=== PATIENT | female | born 1975 | race Caucasian/White ===

== ENCOUNTER 2023-01-15 09:57 | Emergency (ER) | payer BC, SELFPAY ==
--- NOTE | ~2023-01-15 | XR_ITS ---
EXAMINATION: XR toe 1st RT min 2V DATE: 01/15/2023 10:24 INDICATION: Right great toe injury. TECHNIQUE: 3 views of right great toe were obtained. COMPARISON: None. FINDINGS: There is a nondisplaced stellate fracture of first distal phalanx. There is mild osteoarthr itis of first metatarsophalangeal joint. IMPRESSION: 1. Nondisplaced stellate fracture of first distal phalanx. Reviewed, dictated and finalized at location A.
[2023-01-15 10:06] VITALS: BP 149/78; PULSE 92; RESP 20; TEMP 36.7; O2SAT 100
--- NOTE | 2023-01-15 10:32 | ED.LOWEXIN ---
HPI - Extremity Injury (Lower) General Chief Complaint: Extremity Injury, Lower Stated Complaint: right toe injury Time Seen by Provider: 01/15/23 10:22 Source: patient, RN notes reviewed and old records reviewed Mode of arrival: ambulatory Limitations: no limitations History of Present Illness HPI Narrative: 47 year old female presents to express care with complaints of right toe pain due to injury 1 week ago when hitch fell onto her toe. Patient has bruising and swelling to the rifght great toe with no injury to nail noted. Patient reports that she has been taking Ibuprofen and ice applied to toe but has not been able to keep elevated as much as she should.Patient describes pain as burning rates pain 07/20. MD complaint: other (toe injury) Onset (ago): week(s) (1) Injury: Right: toes (great toe) Type of Injury: blunt Place: street/outdoors Severity scale (1-10): 3 Exacerbating factors: weight bearing and movement Treatments prior to arrival: cold therapy and NSAIDS Related Data Home Medications Medication Instructions Recorded Confirmed bupropion HCl 300 mg 24 hr tablet, mg PO 01/15/23 extended release paroxetine HCl 40 mg tablet mg PO 01/15/23 Allergies Allergy/AdvReac Type Severity Reaction Status Date / Time No Known Drug Allergies Allergy Verified 07/04/13 14:17 Review of Systems Review of Systems: CONSTITUTIONAL: Denies fever, chills, or sweats. EYES: Denies visual changes, redness, or discharge. ENT: Denies rhinorrhea, congestion, sore throat, or otalgia. CARDIOVASCULAR: Denies chest pain, palpitations, or edema. RESPIRATORY: Denies cough or dyspnea. GASTROINTESTINAL: Denies abdominal pain, nausea, vomiting, or diarrhea. GENITOURINARY: Denies dysuria or hematuria. SKIN: Denies rash or itching. MUSCULOSKELETAL: Denies back pain,right great toe pain, or myalgia. NEUROLOGIC: Denies headache, numbness, or weakness. PSYCHIATRIC: Positive for anxiety or depression. All systems reviewed & are unremarkable except as noted in HPI and below PMFSH Past Medical History Medical History (Updated 01/16/23 @ 11:16 by Vicenta Canas NP) Anxiety and depression Fracture of left proximal fibula Migraine Surgical History Surgical History (Updated 01/16/23 @ 11:10 by Vicenta Canas NP) History of stapedectomy History of tonsillectomy Hx of SACHINIK Social History Social History (Updated 01/16/23 @ 11:09 by Vicenta Canas NP) Smoking status: Former smoker Alcohol intake: current Alcohol use details: social Substance use type: does not use Comments At time of signature, agree with nursing past medical, surgical, social and family history. There is no relevant family history pertinent to the presenting complaint Exam Narrative: GENERAL: Well-appearing, well-nourished, and in no acute distress. HEAD: Normocephalic, atraumatic. EYES: PERRLA and EOMI. ENT: Nares clear, no rhinorrhea or epistaxis. Mucous membranes moist.TM's normal throat pink no tonsils present NECK: Supple.no lymphadenopathy CHEST: Clear to auscultation. No respiratory distress.SAO2 100% on room air HEART: Regular rate and rhythm. No murmur heard. Normal peripheral pulses. ABDOMEN: Soft, nontender, nondistended, normal active bowel sounds. EXTREMITIES: Normal range of motion. No Edema noted to right great toe above nail bed with no injury to nail, swelling and some redness noted to toe. Patient has adequate sensation and sensation to toe, pain with ambulation and mobility of toe.. SKIN: Warm, dry, no rash. NEURO: No focal deficits. Alert and oriented x3. Course Course Emergency Course: Patient is aware of diagnosis, understands and agrees to treatment plan.? Anticipatory guidance given.? Patient agrees to follow-up as directed and is aware of reasons to seek care at the emergency department. Portions of this record may have been created with voice recognition software Level of Care: Express Care Visit Vital Signs
== END 2023-01-15 10:57 | disposition home or self-care (01) ==
PROVIDERS: Emergency Provider Registered Nurse; PCP Family Medicine
DX: S92.424A Nondisplaced fracture of distal phalanx of right great toe, initial encounter for closed fracture (principal); W20.8XXA Other cause of strike by thrown, projected or falling object, initial encounter; F41.9 Anxiety disorder, unspecified; F32.A Depression, unspecified; Z87.891 Personal history of nicotine dependence
CPT/HCPCS: 73660; 99204; G0463